=== PATIENT | female | born 1950 | race Caucasian/White ===

== ENCOUNTER → 2017-07-07 | Outpatient (CLI) | payer OTHER ==
[2016-03-31 13:16] VITALS: BP 139/79
[~2017-07-07] MED LIST: NS 100 ML IV 100 ML IV ONE
[2017-07-07 14:25] LABS: CREATININE 0.89 mg/dL (0.55-1.02)
--- NOTE | 2017-07-08 10:07 | CT ---
CT OF THE ABDOMEN AND PELVIS WITH CONTRAST HISTORY: Abdominal pain. History of diverticulitis. Comparison: None Technique: Multiple axial images of the abdomen and pelvis were obtained from the lung bases to the pubic symphy sis follow the administration of IV contrast. Dose reduction techniques including Automated Exposure Control (AEC) and adjustment of mA and kV were utlized. Findings: The heart is normal in size. There is no pericardial effusion. Lung bases are clear without focal con solidation, pleural effusion or pneumothorax. Liver and spleen are normal in size, enhancement characteristics and contour. No focal lesions. The p ortal vein is patent. No ductal dilitation. Gallbladder absent. The pancreas is unremarkable. 1.2 cm right adrenal nodule on series 4, image 27. Kidneys are asymmetric in size with the right kidney parrish much larger. The left renal artery appears somewhat diminutive. There are least 2 simple left renal cysts. No bowel obstruction or inflammation. No abnormal appearing mesenteric or retroperitoneal lymph node s. No free fluid or fluid collections. The bladder is normal in appearance. Status post hysterectomy. No free fluid or abnormal pelvic lymph nodes. No aggressive osseous lesions. IMPRESSION: 1. No source of patient's abdominal pain is identified. 2. Somewhat diminutive left-sided kidney with probable chronic left renal artery stenosis. Simple lef t renal cysts are present. 3. Indeterminate right adrenal nodule. Recommend correlation with MRI of the abdomen with without con trast on a nonemergent basis. Reported By:
== END ==
LOC: RAD 13:23
PROVIDERS: ATTEND Internal Medicine
DX: R10.84 Generalized abdominal pain (principal)
CPT/HCPCS: 36415; 74177; 82565; 84520; A4222

== ENCOUNTER 2017-07-22 08:07 | Day surgery (SDC) | payer OTHER ==
[2017-07-22] MEDS ORDERED: D5 LR 1000 ML 1,000 ML IV ONE (08:16)
[2017-07-22] MEDS ORDERED: DIPRIVAN VIAL 20 ML ONE ×2 (09:29→09:41)
[2017-07-22 10:23] VITALS: BP 160/79
== END 2017-07-22 10:18 | disposition home or self-care (01) ==
LOC: SURG1 08:07
PROVIDERS: ATTEND Internal Medicine Gastroenterology
PROC: 0DBP8ZX Excision of Rectum, Via Natural or Artificial Opening Endoscopic, Diagnostic (ICD-10-PCS; principal; 2017-07-22 09:00)
PROC: 0DJD8ZZ Inspection of Lower Intestinal Tract, Via Natural or Artificial Opening Endoscopic (ICD-10-PCS; principal; 2017-07-22 09:00)
DX: Z80.0 Family history of malignant neoplasm of digestive organs (principal); Z86.010 Personal history of colon polyps; K63.5 Polyp of colon; K64.0 First degree hemorrhoids; K59.09 Other constipation
CPT/HCPCS: A4217; J3490; J7120